=== PATIENT | female | born 1975 | race Two or more races ===

== ENCOUNTER 2021-09-13 16:49 | Inpatient (IN) | payer OTHER ==
[~2021-09-13] VITALS: Ht 162.6 cm; Wt 67.8 kg
[2021-09-13] MEDS ORDERED: PANTOPRAZOLE 40 MG/10 ML VIAL INJ IV ONE (17:15)
[2021-09-13] MEDS ORDERED: ONDANSETRON HCL 4 MG/2 ML VIAL IV ONE (17:15)
[2021-09-13] MEDS ORDERED: MORPHINE SULFATE 4 MG/ML SYR/VIAL IV ONE (17:15)
[2021-09-13] MEDS ORDERED: SODIUM CHLORIDE 0.9% 1,000 ML IVB ONE (17:15)
[2021-09-13 18:53] LABS: Basophils # (auto) 0.1 10 ^3/uL (0-0.2); Hemoglobin 13.4 g/dL (12.2-16.2); Lymphocytes # (auto) 2.2 10 ^3/uL (0.4-5.4); Lymphocytes % (auto) 13.7 % (10.0-50.0); Monocytes # (auto) 0.8 10 ^3/uL (0-1.3); Neutrophils # (auto) 12.7 10 ^3/uL (1.6-8.6)
[2021-09-13 18:54] LABS: Basophils % (auto) 0.6 % (0.0-2.0); Eosinophils # (auto) 0 10 ^3/uL (0-0.8); Eosinophils % (auto) 0.2 % (0.0-7.0); Hematocrit 40.1 % (36.0-46.0); Mean Corpuscular Hemoglobin 29.1 pg (28.0-32.0); Mean Corpuscular Hgb Conc. 33.5 g/dL (32.0-36.0); Mean Corpuscular Volume 86.8 fL (80.0-100.0); Monocytes % (auto) 4.8 % (0.0-12.0); Neutrophils % (auto) 80.7 % (37.0-80.0); Red Blood Cells 4.62 10^6/uL (4.0-5.20); Red Cell Distribution Width 12.6 % (11.8-14.3); White Blood Cell 15.8 10^3/uL (4.4-10.8)
[2021-09-13 19:08] LABS: BUN/Creatinine Ratio 14.3; Calcium 9.2 mg/dL (8.5-10.1); Potassium 4.4 mmol/L (3.5-5.1)
[2021-09-13 19:11] LABS: Bilirubin, Total 0.5 mg/dL (0.2-1.0); Total Protein 7.7 g/dL (6.4-8.2)
[2021-09-13] MEDS ORDERED: HYDROcodone-ACET 5/325MG TAB PO PRN (21:45)
[2021-09-13] MEDS ORDERED: cefTRIAXone 1GM/50ML D5W 50 ML IV ONE (21:45)
[2021-09-13] MEDS ORDERED: ACETAMINOPHEN 325 MG TAB PO PRN (21:45)
[2021-09-13] MEDS ORDERED: MORPHINE SULFATE 4 MG/ML SYR/VIAL IV PRN (21:45)
[2021-09-13] MEDS ORDERED: DEXTROSE (50%) 50ML SYRG IV PRN (21:45)
[2021-09-13] MEDS: SODIUM CHLORIDE 0.9% 1,000 ML IV SCH (21:45)
[2021-09-13] MEDS ORDERED: ONDANSETRON HCL 4 MG/2 ML VIAL IV PRN (21:45)
[2021-09-13] MEDS: metroNIDAZOLE 500MG/100ML 100 ML IV SCH (22:00)
[2021-09-13] MEDS: ACCU-CHEK COMFORT CURVE STRIP VI SCH (22:00)
[2021-09-13] MEDS: InsuLIN REG 1unit/0.01ml Soln (100units/ml) SC SCH (22:00)
[2021-09-13] MEDS ORDERED: MORPHINE SULFATE INJECTION 2 MG/ML SYRG IV PRN (23:45)
[2021-09-13] MEDS ORDERED: NITROGLYCERIN 0.4 MG SL TAB SL PRN (23:45)
[2021-09-14] MEDS: metroNIDAZOLE 500MG/100ML 100 ML IV SCH ×3 (05:24→22:39)
[2021-09-14 05:40] LABS: Albumin 2.4 g/dL (3.4-5.0); Potassium 3.9 mmol/L (3.5-5.1)
[2021-09-14 05:44] LABS: Bilirubin, Total 0.4 mg/dL (0.2-1.0); Total Protein 6.1 g/dL (6.4-8.2)
[2021-09-14 06:23] LABS: Basophils # (auto) 0 10 ^3/uL (0-0.2); Basophils % (auto) 0.2 % (0.0-2.0); Eosinophils # (auto) 0 10 ^3/uL (0-0.8); Eosinophils % (auto) 0.1 % (0.0-7.0); Hemoglobin 11.5 g/dL (12.2-16.2); Lymphocytes # (auto) 1.5 10 ^3/uL (0.4-5.4); Lymphocytes % (auto) 8.9 % (10.0-50.0); Mean Corpuscular Hemoglobin 29.3 pg (28.0-32.0); Mean Corpuscular Hgb Conc. 33.9 g/dL (32.0-36.0); Mean Corpuscular Volume 86.4 fL (80.0-100.0); Monocytes # (auto) 1.1 10 ^3/uL (0-1.3); Monocytes % (auto) 6.5 % (0.0-12.0); Neutrophils # (auto) 14.2 10 ^3/uL (1.6-8.6); Neutrophils % (auto) 84.3 % (37.0-80.0); Red Blood Cells 3.94 10^6/uL (4.0-5.20); Red Cell Distribution Width 12.4 % (11.8-14.3); White Blood Cell 16.8 10^3/uL (4.4-10.8)
[2021-09-14] MEDS: InsuLIN REG 1unit/0.01ml Soln (100units/ml) SC SCH ×4 (07:00→22:00)
[2021-09-14] MEDS: ACCU-CHEK COMFORT CURVE STRIP VI SCH ×4 (07:17→22:00)
[2021-09-14 08:07] LABS: Urine Bacteria MOD /hpf (None Seen); Urine Blood TRACE /uL (Negative); Urine Mucus FEW (None Seen); Urine Specific Gravity 1.032 (1.001-1.035); Urine WBC 116 /hpf (0 - 5)
[2021-09-14 08:16] LABS: Alcohol, Urine < 3.0 mg/dL (0-10); Amphetamine Screen, Urine POSITIVE (NEGATIVE); Barbiturate Scree,Urine NEGATIVE (NEGATIVE); Benzodiazephine Screen, Urine NEGATIVE (NEGATIVE); Cannabinoid Screen, Urine POSITIVE (NEGATIVE); Cocaine Screen, Urine NEGATIVE (NEGATIVE); Opiate Scree,Urine NEGATIVE (NEGATIVE); Phencyclidine Screen, Urine NEGATIVE (NEGATIVE)
[2021-09-14] MEDS ORDERED: INSLANTI SC ×2 (08:26)
[2021-09-14] MEDS ORDERED: INSLISPI SC (08:26)
[2021-09-14] MEDS ORDERED: DULO20CA PO (08:26)
[2021-09-14] MEDS: PANTOPRAZOLE 40 MG/10 ML VIAL INJ IV SCH (10:15)
[2021-09-14] MEDS: cefTRIAXone 1GM/50ML D5W 50 ML IV SCH (10:15)
[2021-09-14 13:00] VITALS: BP 135/85
[2021-09-14 13:58] LABS: INR 1.08 (0.9-1.15); Partial Thromboplastin Time 29.1 sec (23.6-33.0)
[2021-09-14 17:00] VITALS: BP 112/76
[2021-09-14 22:00] VITALS: BP 121/75
[2021-09-14] MEDS: SODIUM CHLORIDE 0.9% 1,000 ML IV SCH (22:39)
[2021-09-15 05:00] VITALS: BP 145/91
[2021-09-15] MEDS: metroNIDAZOLE 500MG/100ML 100 ML IV SCH ×3 (06:29→23:35)
[2021-09-15] MEDS: InsuLIN REG 1unit/0.01ml Soln (100units/ml) SC SCH ×4 (06:30→23:52)
[2021-09-15 08:30] VITALS: BP 106/71
[2021-09-15] MEDS ORDERED: DexAMETHasone SOD PHOS 10MG/1ML VIAL INJ ONE (09:30)
[2021-09-15] MEDS ORDERED: fentaNYL CITRATE 100 MCG/2 ML VL ONE (09:30)
[2021-09-15] MEDS ORDERED: ONDANSETRON HCL 4 MG/2 ML VIAL ONE (09:30)
[2021-09-15] MEDS ORDERED: GLYCOPYRROLATE 0.2 MG/ML 1ML VIAL ONE (09:30)
[2021-09-15] MEDS ORDERED: MIDAZOLAM HCL 2MG/2ML 2ml VIAL (1mg/ml) ONE (09:30)
[2021-09-15] MEDS ORDERED: HYDROmorphone HCL 2 MG/ML VL ONE (09:30)
[2021-09-15] MEDS ORDERED: KETOROLAC TROMETH 30 MG/ML 1ML VIAL ONE (09:30)
[2021-09-15] MEDS ORDERED: PROPOFOL 10 MG/ML 20 ML IV ONE (09:30)
[2021-09-15] MEDS ORDERED: LIDOCAINE 2% (LOCAL ANESTH.) PF 5ml SDV ONE (09:30)
[2021-09-15] MEDS ORDERED: ceFAZolin 1GM/50ML 100 ML IV ONE (09:41)
[2021-09-15] MEDS ORDERED: BUPIVACAINE 0.25% INJ 50ML VIAL ONE (10:52)
[2021-09-15] MEDS ORDERED: LIDOCAINE W/ EPINEPHRINE 1% 20ML VIAL ONE (10:52)
[2021-09-15] MEDS: ACCU-CHEK COMFORT CURVE STRIP VI SCH ×4 (11:30→23:40)
[2021-09-15] MEDS: D5W/SOD CHL 0.45%/KCL 20MEQ 1,000 ML IV SCH ×2 (12:45→23:34)
[2021-09-15] MEDS ORDERED: HYDROmorphone HCL 2 MG/ML VL IV PRN ×2 (12:45→13:15)
[2021-09-15] MEDS ORDERED: ONDANSETRON HCL 4 MG/2 ML VIAL IV PRN (13:15)
[2021-09-15] MEDS ORDERED: ACCU-CHEK COMFORT CURVE STRIP VI ONE (13:15)
[2021-09-15 14:16] LABS: Basophils # (auto) 0 10 ^3/uL (0-0.2); Basophils % (auto) 0.3 % (0.0-2.0); Eosinophils # (auto) 0 10 ^3/uL (0-0.8); Lymphocytes # (auto) 1.2 10 ^3/uL (0.4-5.4); Red Cell Distribution Width 12.4 % (11.8-14.3); White Blood Cell 14.1 10^3/uL (4.4-10.8)
[2021-09-15 14:18] LABS: Eosinophils % (auto) 0.1 % (0.0-7.0); Hematocrit 35.9 % (36.0-46.0); Hemoglobin 11.9 g/dL (12.2-16.2); Lymphocytes % (auto) 8.2 % (10.0-50.0); Mean Corpuscular Hemoglobin 28.9 pg (28.0-32.0); Mean Corpuscular Hgb Conc. 33.2 g/dL (32.0-36.0); Mean Corpuscular Volume 87.2 fL (80.0-100.0); Monocytes # (auto) 0.2 10 ^3/uL (0-1.3); Monocytes % (auto) 1.6 % (0.0-12.0); Neutrophils # (auto) 12.7 10 ^3/uL (1.6-8.6); Neutrophils % (auto) 89.8 % (37.0-80.0); Red Blood Cells 4.12 10^6/uL (4.0-5.20)
[2021-09-15] MEDS: cefTRIAXone 1GM/50ML D5W 50 ML IV SCH (16:04)
[2021-09-15] MEDS: PANTOPRAZOLE 40 MG/10 ML VIAL INJ IV SCH (16:05)
[2021-09-15 17:00] VITALS: BP 127/82
[2021-09-15 22:00] VITALS: BP 123/80
[2021-09-16 05:22] VITALS: BP 114/83
[2021-09-16] MEDS: metroNIDAZOLE 500MG/100ML 100 ML IV SCH ×3 (06:20→21:49)
[2021-09-16] MEDS: ACCU-CHEK COMFORT CURVE STRIP VI SCH ×4 (06:22→21:52)
[2021-09-16] MEDS: InsuLIN REG 1unit/0.01ml Soln (100units/ml) SC SCH ×4 (06:22→21:50)
[2021-09-16 08:58] VITALS: BP 131/85
[2021-09-16] MEDS: cefTRIAXone 1GM/50ML D5W 50 ML IV SCH (09:49)
[2021-09-16] MEDS: D5W/SOD CHL 0.45%/KCL 20MEQ 1,000 ML IV SCH ×2 (09:49→17:00)
[2021-09-16] MEDS: PANTOPRAZOLE 40 MG/10 ML VIAL INJ IV SCH (09:49)
[2021-09-16 12:53] VITALS: BP 151/104
[2021-09-16 16:30] VITALS: BP 119/83
[2021-09-16 22:00] VITALS: BP 130/90
[2021-09-17] MEDS: D5W/SOD CHL 0.45%/KCL 20MEQ 1,000 ML IV SCH ×2 (04:45→14:30)
[2021-09-17 05:00] VITALS: BP 125/77
[2021-09-17] MEDS: metroNIDAZOLE 500MG/100ML 100 ML IV SCH ×2 (05:28→14:00)
[2021-09-17] MEDS: InsuLIN REG 1unit/0.01ml Soln (100units/ml) SC SCH ×2 (05:34→11:30)
[2021-09-17] MEDS: ACCU-CHEK COMFORT CURVE STRIP VI SCH ×2 (05:46→11:30)
[2021-09-17 09:00] VITALS: BP 127/89
[2021-09-17] MEDS: cefTRIAXone 1GM/50ML D5W 50 ML IV SCH (09:16)
[2021-09-17] MEDS: PANTOPRAZOLE 40 MG/10 ML VIAL INJ IV SCH (09:16)
[2021-09-17 13:00] VITALS: BP 123/91
== END 2021-09-17 16:00 | disposition home or self-care (01) | DRG 710 ==
LOC: ER 16:49 → OVERFLOW 16:50 → CENTRAL 09-14 08:12
PROVIDERS: ADMIT Nurse Practitioner Family; ATTEND Family Medicine
PROC: 0FT44ZZ Resection of Gallbladder, Percutaneous Endoscopic Approach (ICD-10-PCS; principal; 2021-09-15 11:51)
DX: A41.9 Sepsis, unspecified organism (principal); E43 Unspecified severe protein-calorie malnutrition; R64 Cachexia; K80.00 Calculus of gallbladder with acute cholecystitis without obstruction; E88.09 Other disorders of plasma-protein metabolism, not elsewhere classified; E11.65 Type 2 diabetes mellitus with hyperglycemia; D75.839 Thrombocytosis, unspecified; E86.0 Dehydration; F12.10 Cannabis abuse, uncomplicated; R55 Syncope and collapse; Z20.822 Contact with and (suspected) exposure to COVID-19; F15.10 Other stimulant abuse, uncomplicated; N39.0 Urinary tract infection, site not specified; Z83.3 Family history of diabetes mellitus; Z90.49 Acquired absence of other specified parts of digestive tract; Z71.51 Drug abuse counseling and surveillance of drug abuser; Z68.23 Body mass index [BMI] 23.0-23.9, adult
CPT/HCPCS: 36415; 71045; 76705; 80053; 80307; 81001; 82150; 82247; 82962; 83036; 83690; 84702; 85025; 85610; 85730; 86850; 86900; 86901; 87040; 87086; 87426; 93005; 96365; 96375; 96376; C9113; G0378; J0690; J0696; J1100; J1815; J1885; J2001; J2250; J2405; J2704; J3490

== ENCOUNTER 2021-09-22 22:43 | Inpatient (IN) | payer OTHER ==
[~2021-09-22] VITALS: Ht 165.1 cm; Wt 69.0 kg
[~2021-09-22 22:43] MED LIST: DULO20CA PO; INSLANTI SC; INSLISPI SC
[2021-09-22 23:45] LABS: Basophils # (auto) 0.1 10 ^3/uL (0-0.2); Eosinophils # (auto) 0.3 10 ^3/uL (0-0.8); Mean Corpuscular Volume 86.5 fL (80.0-100.0)
[2021-09-22 23:47] LABS: Basophils % (auto) 0.6 % (0.0-2.0); Eosinophils % (auto) 1.7 % (0.0-7.0); Hematocrit 40.2 % (36.0-46.0); Hemoglobin 13.2 g/dL (12.2-16.2); Lymphocytes # (auto) 2.7 10 ^3/uL (0.4-5.4); Lymphocytes % (auto) 13.2 % (10.0-50.0); Mean Corpuscular Hemoglobin 28.5 pg (28.0-32.0); Mean Corpuscular Hgb Conc. 32.9 g/dL (32.0-36.0); Monocytes # (auto) 1.3 10 ^3/uL (0-1.3); Monocytes % (auto) 6.3 % (0.0-12.0); Neutrophils % (auto) 78.2 % (37.0-80.0); Red Blood Cells 4.65 10^6/uL (4.0-5.20); White Blood Cell 20.5 10^3/uL (4.4-10.8)
[2021-09-23 00:08] LABS: Albumin 2.9 g/dL (3.4-5.0); BUN/Creatinine Ratio 16.4; Calcium 9.1 mg/dL (8.5-10.1); Potassium 4.7 mmol/L (3.5-5.1)
[2021-09-23 00:09] LABS: Bilirubin, Total 0.4 mg/dL (0.2-1.0); Total Protein 7.6 g/dL (6.4-8.2)
[2021-09-23 00:16] LABS: Urine Bacteria FEW /hpf (None Seen); Urine Blood Negative /uL (Negative); Urine Specific Gravity 1.033 (1.001-1.035); Urine WBC 4 /hpf (0 - 5)
[2021-09-23] MEDS ORDERED: MORPHINE SULFATE 4 MG/ML SYR/VIAL IV ONE ×2 (00:45→06:15)
[2021-09-23] MEDS ORDERED: SODIUM CHLORIDE 0.9% 1,000 ML IV ONE (00:45)
[2021-09-23] MEDS ORDERED: ONDANSETRON HCL 4 MG/2 ML VIAL IV ONE ×2 (00:45→06:15)
[2021-09-23] MEDS ORDERED: VANCOMYCIN 1GM/250ML 250 ML IV ONE (02:00)
[2021-09-23] MEDS ORDERED: cefTRIAXone 1GM/50ML D5W 50 ML IV ONE (02:15)
[2021-09-23] MEDS ORDERED: MEROPENEM 500MG IVPB 50 ML IV ONE (02:15)
[2021-09-23] MEDS ORDERED: metroNIDAZOLE 500MG/100ML 100 ML IV ONE (02:15)
[2021-09-23] MEDS ORDERED: DEXTROSE (50%) 50ML SYRG IV PRN (06:15)
[2021-09-23] MEDS ORDERED: LEVO-28 PO (09:12)
[2021-09-23] MEDS ORDERED: MET500T PO (09:12)
[2021-09-23 09:54] VITALS: BP 104/74
[2021-09-23] MEDS: PANTOPRAZOLE 40 MG/10 ML VIAL INJ IV SCH (09:56)
[2021-09-23] MEDS: ACCU-CHEK COMFORT CURVE STRIP VI SCH ×2 (12:00→17:55)
[2021-09-23] MEDS: InsuLIN REG 1unit/0.01ml Soln (100units/ml) SC SCH ×2 (12:00→17:58)
[2021-09-23] MEDS: metroNIDAZOLE 500MG/100ML 100 ML IV SCH ×2 (12:00→20:27)
[2021-09-23 12:19] VITALS: BP 105/59
[2021-09-23 17:37] VITALS: BP 96/65
[2021-09-23 19:04] LABS: Basophils # (auto) 0.1 10 ^3/uL (0-0.2); Basophils % (auto) 0.4 % (0.0-2.0); Eosinophils # (auto) 0.3 10 ^3/uL (0-0.8); Eosinophils % (auto) 1.6 % (0.0-7.0); Hematocrit 34.1 % (36.0-46.0); Hemoglobin 11.5 g/dL (12.2-16.2); Lymphocytes # (auto) 2.8 10 ^3/uL (0.4-5.4); Lymphocytes % (auto) 17.7 % (10.0-50.0); Mean Corpuscular Hemoglobin 29.2 pg (28.0-32.0); Mean Corpuscular Hgb Conc. 33.7 g/dL (32.0-36.0); Mean Corpuscular Volume 86.6 fL (80.0-100.0); Monocytes # (auto) 1.1 10 ^3/uL (0-1.3); Monocytes % (auto) 6.9 % (0.0-12.0); Neutrophils # (auto) 11.8 10 ^3/uL (1.6-8.6); Neutrophils % (auto) 73.4 % (37.0-80.0); Red Blood Cells 3.94 10^6/uL (4.0-5.20); Red Cell Distribution Width 12.7 % (11.8-14.3)
[2021-09-23 19:15] LABS: Albumin 2.5 g/dL (3.4-5.0); BUN/Creatinine Ratio 20.4; Calcium 8.5 mg/dL (8.5-10.1); Potassium 4.1 mmol/L (3.5-5.1)
[2021-09-23 19:29] LABS: Bilirubin, Total 0.5 mg/dL (0.2-1.0); Total Protein 6.3 g/dL (6.4-8.2)
[2021-09-23 20:00] VITALS: BP 108/57
[2021-09-23] MEDS: SODIUM CHLORIDE 0.9% 1,000 ML IV SCH (20:27)
[2021-09-23 22:00] VITALS: BP 108/51
[2021-09-23] MEDS ORDERED: KETOROLAC TROMETH 30 MG/ML 1ML VIAL IV ONE (23:15)
[2021-09-24] MEDS: InsuLIN REG 1unit/0.01ml Soln (100units/ml) SC SCH ×5 (00:27→17:56)
[2021-09-24] MEDS: ACCU-CHEK COMFORT CURVE STRIP VI SCH ×4 (00:28→17:54)
[2021-09-24] MEDS: cefTRIAXone 1GM/50ML D5W 50 ML IV SCH (02:18)
[2021-09-24] MEDS: metroNIDAZOLE 500MG/100ML 100 ML IV SCH ×3 (04:00→21:44)
[2021-09-24 05:00] VITALS: BP 108/67
[2021-09-24 05:58] LABS: Basophils # (auto) 0.1 10 ^3/uL (0-0.2); Eosinophils # (auto) 0.3 10 ^3/uL (0-0.8)
[2021-09-24 06:01] LABS: Basophils % (auto) 0.7 % (0.0-2.0); Eosinophils % (auto) 2.2 % (0.0-7.0); Hematocrit 34.3 % (36.0-46.0); Hemoglobin 11.5 g/dL (12.2-16.2); Lymphocytes # (auto) 3.4 10 ^3/uL (0.4-5.4); Lymphocytes % (auto) 23.4 % (10.0-50.0); Mean Corpuscular Hgb Conc. 33.4 g/dL (32.0-36.0); Mean Corpuscular Volume 86.7 fL (80.0-100.0); Monocytes % (auto) 6.8 % (0.0-12.0); Neutrophils # (auto) 9.8 10 ^3/uL (1.6-8.6); Neutrophils % (auto) 66.9 % (37.0-80.0); Red Blood Cells 3.95 10^6/uL (4.0-5.20); Red Cell Distribution Width 12.6 % (11.8-14.3); White Blood Cell 14.6 10^3/uL (4.4-10.8)
[2021-09-24] MEDS: SODIUM CHLORIDE 0.9% 1,000 ML IV SCH ×2 (06:11→21:44)
[2021-09-24 06:30] LABS: Albumin 2.2 g/dL (3.4-5.0); BUN/Creatinine Ratio 28.6; Calcium 8.6 mg/dL (8.5-10.1)
[2021-09-24 06:37] LABS: Bilirubin, Total 0.2 mg/dL (0.2-1.0); Total Protein 5.8 g/dL (6.4-8.2)
[2021-09-24 08:36] VITALS: BP 100/74
[2021-09-24] MEDS: PANTOPRAZOLE 40 MG/10 ML VIAL INJ IV SCH (09:26)
[2021-09-24] MEDS: ONDANSETRON HCL 4 MG/2 ML VIAL IV PRN (09:26)
[2021-09-24] MEDS: MORPHINE SULFATE 4 MG/ML SYR/VIAL IV PRN (09:27)
[2021-09-24 12:47] VITALS: BP 110/72
[2021-09-24 16:28] VITALS: BP 103/70
[2021-09-24 20:00] VITALS: BP 103/69
[2021-09-24 22:33] VITALS: BP 103/69
[2021-09-25] MEDS: InsuLIN REG 1unit/0.01ml Soln (100units/ml) SC SCH ×4 (00:05→17:37)
[2021-09-25] MEDS: ONDANSETRON HCL 4 MG/2 ML VIAL IV PRN ×2 (00:29→21:49)
[2021-09-25] MEDS: MORPHINE SULFATE 4 MG/ML SYR/VIAL IV PRN ×2 (00:30→21:38)
[2021-09-25] MEDS: cefTRIAXone 1GM/50ML D5W 50 ML IV SCH (02:37)
[2021-09-25] MEDS: metroNIDAZOLE 500MG/100ML 100 ML IV SCH ×3 (03:59→20:20)
[2021-09-25 05:06] VITALS: BP 110/76
[2021-09-25] MEDS: ACCU-CHEK COMFORT CURVE STRIP VI SCH ×4 (06:21→17:35)
[2021-09-25 08:33] VITALS: BP 112/88
[2021-09-25] MEDS: PANTOPRAZOLE 40 MG/10 ML VIAL INJ IV SCH (09:25)
[2021-09-25] MEDS: SODIUM CHLORIDE 0.9% 1,000 ML IV SCH ×2 (09:26→13:29)
[2021-09-25 13:00] VITALS: BP 123/90
[2021-09-25 17:01] VITALS: BP 129/85
[2021-09-25 20:00] VITALS: BP 121/85
[2021-09-25] MEDS: MUPIROCIN 2% OINT 15gm or 22gm EACHNOSTRI SCH (21:36)
[2021-09-25 21:54] VITALS: BP 121/85
[2021-09-26] MEDS: ACCU-CHEK COMFORT CURVE STRIP VI SCH ×3 (01:01→12:00)
[2021-09-26] MEDS: InsuLIN REG 1unit/0.01ml Soln (100units/ml) SC SCH ×3 (01:04→12:00)
[2021-09-26] MEDS: cefTRIAXone 1GM/50ML D5W 50 ML IV SCH (02:03)
[2021-09-26] MEDS: ONDANSETRON HCL 4 MG/2 ML VIAL IV PRN (02:45)
[2021-09-26] MEDS: MORPHINE SULFATE 4 MG/ML SYR/VIAL IV PRN (02:46)
[2021-09-26] MEDS: metroNIDAZOLE 500MG/100ML 100 ML IV SCH ×2 (04:13→12:00)
[2021-09-26 06:04] VITALS: BP 109/74
[2021-09-26 07:45] VITALS: BP 107/77
[2021-09-26 09:00] VITALS: BP 107/77
[2021-09-26] MEDS: SODIUM CHLORIDE 0.9% 1,000 ML IV SCH (09:15)
[2021-09-26] MEDS: PANTOPRAZOLE 40 MG/10 ML VIAL INJ IV SCH (10:22)
[2021-09-26] MEDS: MUPIROCIN 2% OINT 15gm or 22gm EACHNOSTRI SCH (10:23)
[2021-09-26 12:01] VITALS: BP 107/77
[2021-09-26 13:00] VITALS: BP 110/77
== END 2021-09-26 13:35 | disposition home or self-care (01) | DRG 720 ==
LOC: ER 22:46 → OVERFLOW 09-23 06:12 → WEST WING 09-23 08:41
PROVIDERS: ADMIT Nurse Practitioner; ATTEND Family Medicine
DX: A41.9 Sepsis, unspecified organism (principal); E11.9 Type 2 diabetes mellitus without complications; F15.90 Other stimulant use, unspecified, uncomplicated; A49.02 Methicillin resistant Staphylococcus aureus infection, unspecified site; Z20.822 Contact with and (suspected) exposure to COVID-19; Z83.3 Family history of diabetes mellitus; Z90.49 Acquired absence of other specified parts of digestive tract; Z91.19 Patient's noncompliance with other medical treatment and regimen
CPT/HCPCS: 36415; 74177; 80053; 81001; 82962; 83605; 83690; 85025; 87040; 87081; 87426; 96365; 96368; 96375; C9113; G0378; J0696; J1815; J1885; J2185; J2405; J3490

== ENCOUNTER 2023-04-17 04:34 | Inpatient (IN) | payer OTHER ==
[~2023-04-17] VITALS: Ht 165.1 cm; Wt 73.1 kg
[~2023-04-17 04:34] MED LIST changes: +LEVO500T91 PO; +MET500T PO
[2023-04-17 07:45] LABS: Albumin 3.1 g/dL (3.4-5.0); Calcium 9.5 mg/dL (8.5-10.1); Potassium 3.6 mmol/L (3.5-5.1)
[2023-04-17 07:49] LABS: BUN/Creatinine Ratio 18.3 (10.0-20.0); Bilirubin, Total 0.5 mg/dL (0.2-1.0); Lactic Acid w/Reflex 2.3 mmol/L (0.4-2.0); Total Protein 9.3 g/dL (6.4-8.2)
[2023-04-17 07:50] LABS: Basophils # (auto) 0.1 10 ^3/uL (0-0.2); Basophils % (auto) 0.4 % (0.0-2.0); Eosinophils # (auto) 0 10 ^3/uL (0-0.8); Eosinophils % (auto) 0.1 % (0.0-7.0); Hemoglobin 15.5 g/dL (12.2-16.2); Lymphocytes # (auto) 2.2 10 ^3/uL (0.4-5.4); Lymphocytes % (auto) 11.1 % (10.0-50.0); Mean Corpuscular Hemoglobin 27.7 pg (28.0-32.0); Mean Corpuscular Volume 83.9 fL (80.0-100.0); Monocytes # (auto) 1.5 10 ^3/uL (0-1.3); Monocytes % (auto) 7.2 % (0.0-12.0); Neutrophils # (auto) 16.3 10 ^3/uL (1.6-8.6); Neutrophils % (auto) 81.2 % (37.0-80.0); Nucleated Red Blood Cells % 0.1 %; Red Cell Distribution Width 13.2 % (11.8-14.3); White Blood Cell 20.1 10^3/uL (4.4-10.8)
[2023-04-17] MEDS ORDERED: PIPERACILLIN-TAZOB 3.375GM 100 ML IV ONE (08:15)
[2023-04-17] MEDS ORDERED: SODIUM CHLORIDE 0.9% 1,000 ML IV ONE ×3 (08:15→11:00)
[2023-04-17] MEDS ORDERED: CEFEPIME 1GM/ 50ML 50 ML IV ONE (08:30)
[2023-04-17 08:35] LABS: Amphetamine Screen, Urine POSITIVE (NEGATIVE); Barbiturate Scree,Urine NEGATIVE (NEGATIVE); Benzodiazephine Screen, Urine NEGATIVE (NEGATIVE); Cannabinoid Screen, Urine NEGATIVE (NEGATIVE); Cocaine Screen, Urine NEGATIVE (NEGATIVE); Opiate Scree,Urine NEGATIVE (NEGATIVE); Phencyclidine Screen, Urine NEGATIVE (NEGATIVE)
[2023-04-17 09:21] LABS: Urine Bacteria MANY /hpf (None Seen); Urine Blood Negative /uL (Negative); Urine Clarity CLOUDY (Clear); Urine Color Yellow (Yellow); Urine Hyaline Cast MANY /lpf (0 - 2); Urine Mucus MANY (None Seen); Urine Protein, UAD 1+ (Negative); Urine Specific Gravity 1.029 (1.001-1.035); Urine WBC 312 /hpf (0 - 5)
[2023-04-17] MEDS ORDERED: cefTRIAXone 1GM/50ML D5W 50 ML IV ONE (09:30)
[2023-04-17] MEDS ORDERED: ONDANSETRON HCL 4 MG/2 ML VIAL IV PRN (10:30)
[2023-04-17] MEDS ORDERED: DOCUSATE SOD 100 MG CAP PO PRN (10:30)
[2023-04-17] MEDS ORDERED: DEXTROSE (50%) 50ML SYRG IV PRN (10:30)
[2023-04-17] MEDS ORDERED: MORPHINE SULFATE INJ 2 MG/ml SYRG IV PRN (10:30)
[2023-04-17] MEDS: ACCU-CHEK COMFORT CURVE STRIP VI SCH ×3 (11:59→22:00)
[2023-04-17] MEDS ORDERED: DULoxetine HCL 30 MG CAP PO SCH (12:00)
[2023-04-17] MEDS: SODIUM CHLORIDE 0.9% 1,000 ML IV SCH ×2 (12:09→19:00)
[2023-04-17] MEDS: InsuLIN REG 1unit/0.01ml Soln (100units/ml) SC SCH ×3 (13:00→22:48)
[2023-04-17] MEDS: PIPERACILLIN-TAZOB 3.375GM 100 ML IV SCH ×2 (14:56→22:38)
[2023-04-17 19:50] VITALS: PULSE 94; RESP 18; O2SAT 99
[2023-04-18] MEDS: SODIUM CHLORIDE 0.9% 1,000 ML IV SCH ×3 (04:36→21:58)
[2023-04-18 06:00] VITALS: BP 94/74; PULSE 91; RESP 18; TEMP 98.6; O2SAT 97
[2023-04-18 06:16] LABS: Basophils # (auto) 0 10 ^3/uL (0-0.2); Basophils % (auto) 0.1 % (0.0-2.0); Eosinophils # (auto) 0.1 10 ^3/uL (0-0.8); Eosinophils % (auto) 0.4 % (0.0-7.0); Hematocrit 42.1 % (36.0-46.0); Hemoglobin 13.8 g/dL (12.2-16.2); Lymphocytes % (auto) 12.4 % (10.0-50.0); Mean Corpuscular Hemoglobin 27.6 pg (28.0-32.0); Mean Corpuscular Hgb Conc. 32.6 g/dL (32.0-36.0); Mean Corpuscular Volume 84.5 fL (80.0-100.0); Monocytes # (auto) 1.3 10 ^3/uL (0-1.3); Monocytes % (auto) 7.9 % (0.0-12.0); Neutrophils # (auto) 13.1 10 ^3/uL (1.6-8.6); Neutrophils % (auto) 79.2 % (37.0-80.0); Red Blood Cells 4.98 10^6/uL (4.0-5.20); Red Cell Distribution Width 13.2 % (11.8-14.3); White Blood Cell 16.5 10^3/uL (4.4-10.8)
[2023-04-18] MEDS: InsuLIN REG 1unit/0.01ml Soln (100units/ml) SC SCH ×4 (06:24→22:16)
[2023-04-18] MEDS: PIPERACILLIN-TAZOB 3.375GM 100 ML IV SCH ×3 (06:24→22:03)
[2023-04-18] MEDS: ACCU-CHEK COMFORT CURVE STRIP VI SCH ×4 (06:24→21:58)
[2023-04-18 06:36] LABS: Potassium 3.1 mmol/L (3.5-5.1)
[2023-04-18 06:52] LABS: Albumin 2.4 g/dL (3.4-5.0); BUN/Creatinine Ratio 16.1 (10.0-20.0); Bilirubin, Total 0.3 mg/dL (0.2-1.0); Calcium 8.3 mg/dL (8.5-10.1); Total Protein 7.4 g/dL (6.4-8.2)
[2023-04-18 07:43] VITALS: PULSE 66; RESP 16; O2SAT 98
[2023-04-18] MEDS: PANTOPRAZOLE 40 MG/10 ML VIAL INJ IV SCH (10:11)
[2023-04-18] MEDS: ENOXAPARIN SOD 40 MG/0.4 ML SYRINGE SC SCH (10:12)
[2023-04-18 17:30] VITALS: BP 95/71; PULSE 93; RESP 20; TEMP 98.5; O2SAT 95
[2023-04-18 20:00] VITALS: O2SAT 100
[2023-04-18 22:00] VITALS: BP 84/54; PULSE 58; RESP 18; TEMP 98.4; O2SAT 100
[2023-04-18 22:05] VITALS: BP 98/63; RESP 18
[2023-04-18] MEDS ORDERED: ACETAMINOPHEN 325 MG TAB PO PRN (22:15)
[2023-04-19] MEDS: SODIUM CHLORIDE 0.9% 1,000 ML IV SCH ×3 (04:10→20:50)
[2023-04-19] MEDS: PIPERACILLIN-TAZOB 3.375GM 100 ML IV SCH ×3 (06:07→22:20)
[2023-04-19] MEDS: ACCU-CHEK COMFORT CURVE STRIP VI SCH ×4 (06:07→22:21)
[2023-04-19] MEDS: InsuLIN REG 1unit/0.01ml Soln (100units/ml) SC SCH ×4 (06:14→22:26)
[2023-04-19 06:25] LABS: Potassium 3.4 mmol/L (3.5-5.1)
[2023-04-19 06:34] LABS: Albumin 2.2 g/dL (3.4-5.0); BUN/Creatinine Ratio 13.6 (10.0-20.0); Bilirubin, Total 0.2 mg/dL (0.2-1.0); Calcium 8.1 mg/dL (8.5-10.1); Total Protein 6.6 g/dL (6.4-8.2)
[2023-04-19 08:00] VITALS: PULSE 81; RESP 19; O2SAT 98
[2023-04-19 08:12] VITALS: BP 108/75; PULSE 81; RESP 19; TEMP 98; O2SAT 98
[2023-04-19] MEDS: PANTOPRAZOLE 40 MG/10 ML VIAL INJ IV SCH (09:35)
[2023-04-19] MEDS: ENOXAPARIN SOD 40 MG/0.4 ML SYRINGE SC SCH (09:36)
[2023-04-19 12:27] LABS: Hepatitis B Surface Antigen Negative (Negative); Hepatitis C Antibody Negative (Negative)
[2023-04-19 12:54] VITALS: BP 101/62; PULSE 77; RESP 18; TEMP 98.8; O2SAT 94
[2023-04-19 17:06] VITALS: BP 95/70; PULSE 86; RESP 17; TEMP 99; O2SAT 97
[2023-04-19 20:00] VITALS: BP 116/66; PULSE 80; RESP 17; TEMP 98.2; O2SAT 98
[2023-04-19 22:00] VITALS: BP 116/66; PULSE 80; RESP 17; TEMP 98.2; O2SAT 98
[2023-04-20 05:00] VITALS: BP 104/72; PULSE 78; RESP 17; TEMP 98; O2SAT 96
[2023-04-20] MEDS: SODIUM CHLORIDE 0.9% 1,000 ML IV SCH ×3 (05:47→22:53)
[2023-04-20] MEDS: ACCU-CHEK COMFORT CURVE STRIP VI SCH ×4 (05:47→22:51)
[2023-04-20] MEDS: PIPERACILLIN-TAZOB 3.375GM 100 ML IV SCH ×3 (05:47→22:50)
[2023-04-20] MEDS: InsuLIN REG 1unit/0.01ml Soln (100units/ml) SC SCH ×4 (06:01→22:00)
[2023-04-20 09:00] VITALS: BP 131/82; PULSE 91; RESP 17; TEMP 98.4; O2SAT 96
[2023-04-20] MEDS: ENOXAPARIN SOD 40 MG/0.4 ML SYRINGE SC SCH (09:36)
[2023-04-20] MEDS: PANTOPRAZOLE 40 MG/10 ML VIAL INJ IV SCH (09:36)
[2023-04-20 13:02] VITALS: BP 114/82; PULSE 80; RESP 21; TEMP 98.5; O2SAT 95
[2023-04-20] MEDS ORDERED: BISACODYL 10 MG RECT SUPP PR PRN (15:00)
[2023-04-20 17:07] VITALS: BP 95/60; PULSE 82; RESP 18; TEMP 98.8; O2SAT 100
[2023-04-20 20:00] VITALS: PULSE 68; RESP 17; O2SAT 94
[2023-04-20 22:00] VITALS: BP 122/75; PULSE 68; RESP 17; TEMP 98.6; O2SAT 94
[2023-04-20] MEDS ORDERED: DOCUSATE SOD 100 MG CAP PO PRN (22:00)
[2023-04-20] MEDS ORDERED: HYDROCORTISONE ACET 25 MG RECTAL SUPP PR PRN (22:00)
[2023-04-20] MEDS: INSULIN LANTUS (GLARGINE) 1 /0.01ml (100units/ml) SC SCH (22:52)
[2023-04-21 05:00] VITALS: BP 114/77; PULSE 71; RESP 17; TEMP 98.5; O2SAT 95
[2023-04-21] MEDS: SODIUM CHLORIDE 0.9% 1,000 ML IV SCH ×3 (06:43→22:50)
[2023-04-21] MEDS: PIPERACILLIN-TAZOB 3.375GM 100 ML IV SCH ×3 (06:43→21:18)
[2023-04-21] MEDS: ACCU-CHEK COMFORT CURVE STRIP VI SCH ×4 (06:43→21:45)
[2023-04-21] MEDS: InsuLIN REG 1unit/0.01ml Soln (100units/ml) SC SCH ×4 (06:52→22:00)
[2023-04-21] MEDS: INSULIN LANTUS (GLARGINE) 1 /0.01ml (100units/ml) SC SCH ×2 (06:52→21:44)
[2023-04-21 09:00] VITALS: BP 117/75; PULSE 69; RESP 17; TEMP 97.6; O2SAT 97
[2023-04-21] MEDS: ENOXAPARIN SOD 40 MG/0.4 ML SYRINGE SC SCH (09:06)
[2023-04-21] MEDS: PANTOPRAZOLE 40 MG/10 ML VIAL INJ IV SCH (09:06)
[2023-04-21 13:00] VITALS: BP 124/74; PULSE 74; RESP 18; TEMP 98.2; O2SAT 99
[2023-04-21 17:00] VITALS: BP 147/81; PULSE 73; RESP 19; TEMP 98.3; O2SAT 98
[2023-04-21] MEDS: Juven Fruit Punch Powder PACKET 28.8gm PO SCH (18:00)
[2023-04-21] MEDS: Pro-Stat SF 30ml Vanilla PO SCH (18:00)
[2023-04-21 22:00] VITALS: BP 140/83; PULSE 73; RESP 16; TEMP 98.3; O2SAT 94
[2023-04-22 05:00] VITALS: BP 127/83; PULSE 83; RESP 16; TEMP 89.1; O2SAT 96
[2023-04-22] MEDS: PIPERACILLIN-TAZOB 3.375GM 100 ML IV SCH ×2 (05:43→14:00)
[2023-04-22] MEDS: InsuLIN REG 1unit/0.01ml Soln (100units/ml) SC SCH ×2 (06:07→12:20)
[2023-04-22] MEDS: SODIUM CHLORIDE 0.9% 1,000 ML IV SCH ×2 (06:08→15:30)
[2023-04-22] MEDS: ACCU-CHEK COMFORT CURVE STRIP VI SCH ×2 (06:08→12:15)
[2023-04-22] MEDS: INSULIN LANTUS (GLARGINE) 1 /0.01ml (100units/ml) SC SCH (06:12)
[2023-04-22] MEDS: Juven Fruit Punch Powder PACKET 28.8gm PO SCH ×2 (08:00→12:00)
[2023-04-22] MEDS: Pro-Stat SF 30ml Vanilla PO SCH (08:00)
[2023-04-22 08:30] VITALS: BP 120/81; PULSE 74; RESP 18; TEMP 98.2; O2SAT 99
[2023-04-22] MEDS: ENOXAPARIN SOD 40 MG/0.4 ML SYRINGE SC SCH (10:08)
[2023-04-22] MEDS: PANTOPRAZOLE 40 MG/10 ML VIAL INJ IV SCH (10:09)
[2023-04-22] MEDS ORDERED: CIPR-173 PO (11:09)
[2023-04-22] MEDS ORDERED: INSU-450 XX (12:55)
[2023-04-22] MEDS ORDERED: INSLISPI SC (12:55)
[2023-04-22] MEDS ORDERED: INSUINJ37 SC (12:55)
[2023-04-22 13:00] VITALS: BP 125/78; PULSE 89; RESP 16; TEMP 97.4; O2SAT 99
[2023-04-22 15:35] VITALS: BP 125/78; PULSE 89; RESP 16; TEMP 36.8; O2SAT 99
== END 2023-04-22 16:15 | disposition home or self-care (01) | DRG 720 ==
LOC: ER 04:34 → OVERFLOW 10:30 → WEST WING 04-18 18:01
PROVIDERS: ADMIT Internal Medicine; ATTEND Internal Medicine
DX: A41.9 Sepsis, unspecified organism (principal); E87.20 Acidosis, unspecified; E44.1 Mild protein-calorie malnutrition; L03.115 Cellulitis of right lower limb; E87.1 Hypo-osmolality and hyponatremia; A46 Erysipelas; E11.40 Type 2 diabetes mellitus with diabetic neuropathy, unspecified; E11.65 Type 2 diabetes mellitus with hyperglycemia; F15.10 Other stimulant abuse, uncomplicated; N30.00 Acute cystitis without hematuria; Z68.26 Body mass index [BMI] 26.0-26.9, adult; Z79.4 Long term (current) use of insulin; Z90.49 Acquired absence of other specified parts of digestive tract
CPT/HCPCS: 36415; 80053; 80307; 81001; 82962; 83036; 83605; 84702; 85025; 86803; 87040; 87081; 87086; 87340; 93971; 96365; 96367; C9113; G0378; J0696; J1815; J2405; J2543